=== PATIENT | male | born 1970 | race Caucasian/White ===

== ENCOUNTER 2022-01-19 18:53 | Emergency (ER) | payer MEDICAID ==
[2022-01-19] MEDS ORDERED: Aspirin 81 MG Tab.Chew PO ONE (19:26)
[2022-01-19] MEDS ORDERED: ALPRAZolam 0.25 MG Tab PO ONE (19:26)
[2022-01-19 19:44] LABS: BLOOD UREA NITROGEN,BUN 11 mg/dL (7.0-18.0); CARBON DIOXIDE,CO2 24.9 mmol/L (21.0-32.0); CHLORIDE,CL 104 mmol/L (98-107); GLUCOSE RANDOM 111 mg/dL (74-106); POTASSIUM,K 3.5 mmol/L (3.5-5.1); SODIUM,NA 141 mmol/L (136-148)
[2022-01-19 19:47] LABS: ESTIMATED GFR > 60.0 ml/min
[2022-01-19] MEDS ORDERED: chlordiazePOXIDE 25 MG Cap PO ONE ×2 (20:23→22:57)
== END 2022-01-19 23:33 | disposition home or self-care (01) ==
LOC: MW.ED 18:53
DX: R07.9 Chest pain, unspecified (principal); I10 Essential (primary) hypertension; F10.230 Alcohol dependence with withdrawal, uncomplicated
CPT/HCPCS: 36415; 71045; 80053; 80305; 83735; 84484; 85025; 93005; 99285; A9270

== ENCOUNTER 2022-01-21 03:15 | Emergency (ER) | payer MEDICAID ==
[2022-01-21] MEDS ORDERED: Aspirin 81 MG Tab.Chew PO ONE (03:24)
[2022-01-21] MEDS ORDERED: Acetaminophen/HYDROcodone 325-5 MG Tab PO ONE (03:43)
[2022-01-21] MEDS ORDERED: Iopamidol 755 MG/ML 500 ML Multipack Bottle IVPUSH ONE (03:57)
[2022-01-21 04:07] LABS: BLOOD UREA NITROGEN,BUN 10 mg/dL (7.0-18.0); CARBON DIOXIDE,CO2 25.4 mmol/L (21.0-32.0); CHLORIDE,CL 100 mmol/L (98-107); GLUCOSE RANDOM 112 mg/dL (74-106); POTASSIUM,K 3.3 mmol/L (3.5-5.1); SODIUM,NA 134 mmol/L (136-148)
[2022-01-21 04:11] LABS: ESTIMATED GFR > 60.0 ml/min
[2022-01-21] MEDS ORDERED: Magnesium Oxide 400 MG Tab PO ONE (04:12)
[2022-01-21] MEDS ORDERED: Potassium Chloride 10% 20 MEQ/15 ML Soln 30 ML UD Cup PO ONE (04:12)
[2022-01-21] MEDS ORDERED: cefTRIAXone 1 GM in Sodium Chloride 0.9% 50 ML IV ONE (05:08)
[2022-01-21] MEDS ORDERED: Diphtheria,Pertussis(Acell),Tetanus Vaccine 0.5 ML Syringe IM ONE (05:09)
== END 2022-01-21 06:42 | disposition home or self-care (01) ==
LOC: MW.ED 03:15
DX: R07.89 Other chest pain (principal); R00.2 Palpitations; E87.6 Hypokalemia; E83.42 Hypomagnesemia; I10 Essential (primary) hypertension
CPT/HCPCS: 36415; 71275; 80048; 83735; 84484; 85025; 93005; 99285; A9270; Q9967